=== PATIENT | male | born 1950 | race Asian ===

== ENCOUNTER 2019-05-12 18:13 | Inpatient (IN) | payer OTHER, BC ==
[~2019-05-12] VITALS: Ht 172.7 cm; Wt 65.5 kg
[~2019-05-12 18:13] MED LIST: APAP/HYDROCODON1 T13 PO; COL100 PO; FER300 PO; LAC PO; NEU300 PO; ROB750 PO; VITC PO
[2019-05-12 18:20] VITALS: Ht 172.7 cm; Wt 65.5 kg
[2019-05-12 22:26] LABS: BASOPHIL % 0.1 % (0-2); PLATELET COUNT 206 x10^3mcL (130-400); RED CELL DISTRIBUTION WIDTH 13.8 % (11.5-14.5)
[2019-05-12 23:08] LABS: CALCIUM 8.9 mg/dL (8.5-10.1); CARBON DIOXIDE 26.2 mmol/L (21-32); CHLORIDE SERUM 102 mmol/L (98-107); GLUCOSE SERUM 114 mg/dL (74-106); POTASSIUM SERUM 4.2 mmol/L (3.5-5.1); SODIUM SERUM 137 mmol/L (136-145)
[2019-05-12 23:13] LABS: ALBUMIN 3.2 g/dL (3.4-5.0); ALKALINE PHOSPHATASE 78 U/L (46-116); ALT/SGPT 23 U/L (16-63); AST/SGOT 18 U/L (15-37); BILIRUBIN TOTAL 0.7 mg/dL (0.20-1.00); LIPASE 55 IU/L (73-393); TOTAL PROTEIN, SERUM 6.9 g/dL (6.4-8.2)
[2019-05-13 00:08] VITALS: BP 117/64
[2019-05-13 02:20] LABS: UA SPECIFIC GRAVITY 1.025 (1.005-1.035); microscopic required? YES; urine erythrocyte 1+ (NEGATIVE)
[2019-05-13 03:05] LABS: AMPHETAMINE QUAL UR NONE DETECTED (See below)
[2019-05-13 04:47] LABS: CHOLESTEROL/HDL RATIO 2.5
[2019-05-13 05:25] VITALS: BP 109/56
[2019-05-13 07:37] VITALS: BP 132/57
[2019-05-13 07:45] LABS: CALCIUM 9.3 mg/dL (8.5-10.1); CARBON DIOXIDE 24.6 mmol/L (21-32); CHLORIDE SERUM 104 mmol/L (98-107); CREATININE SERUM 1.1 mg/dL (0.7-1.3); GLUCOSE SERUM 131 mg/dL (74-106); MAGNESIUM 2.3 mg/dL (1.8-2.4); PHOSPHOROUS 3.1 mg/dL (2.5-4.9); POTASSIUM SERUM 4.4 mmol/L (3.5-5.1); SODIUM SERUM 139 mmol/L (136-145)
[2019-05-13 08:05] LABS: PLATELET COUNT 198 x10^3mcL (130-400); RED CELL DISTRIBUTION WIDTH 13.8 % (11.5-14.5)
[2019-05-13 08:25] LABS: BASOPHIL % 0 % (0-2)
[2019-05-13 11:37] VITALS: BP 114/49
[2019-05-13 15:56] VITALS: BP 118/62
[2019-05-13 19:36] VITALS: BP 106/52
[2019-05-14 07:16] LABS: PLATELET COUNT 219 x10^3mcL (130-400); RED CELL DISTRIBUTION WIDTH 13.4 % (11.5-14.5)
[2019-05-14 07:21] LABS: BASOPHIL % 0 % (0-2)
[2019-05-14 08:05] LABS: CALCIUM 9.8 mg/dL (8.5-10.1); CARBON DIOXIDE 24.2 mmol/L (21-32); CHLORIDE SERUM 108 mmol/L (98-107); CREATININE SERUM 1.1 mg/dL (0.7-1.3); GLUCOSE SERUM 106 mg/dL (74-106); MAGNESIUM 2.8 mg/dL (1.8-2.4); PHOSPHOROUS 2.9 mg/dL (2.5-4.9); POTASSIUM SERUM 4.3 mmol/L (3.5-5.1); SODIUM SERUM 140 mmol/L (136-145)
[2019-05-14 08:37] VITALS: BP 109/61
[2019-05-14 12:12] VITALS: BP 107/53
[2019-05-14 16:38] VITALS: BP 108/53
[2019-05-14 21:20] VITALS: BP 118/54
[2019-05-15 06:03] VITALS: BP 113/62
[2019-05-15 06:47] LABS: CALCIUM 9.3 mg/dL (8.5-10.1); CARBON DIOXIDE 24.9 mmol/L (21-32); CHLORIDE SERUM 109 mmol/L (98-107); GLUCOSE SERUM 86 mg/dL (74-106); POTASSIUM SERUM 4.2 mmol/L (3.5-5.1); SODIUM SERUM 143 mmol/L (136-145)
[2019-05-15 07:16] LABS: BASOPHIL % 0.3 % (0-2); PLATELET COUNT 227 x10^3mcL (130-400); RED CELL DISTRIBUTION WIDTH 13.9 % (11.5-14.5)
[2019-05-15 08:43] VITALS: BP 121/57
[2019-05-15] MEDS ORDERED: NAPROXEN500 MG PO (12:03)
[2019-05-15 12:30] VITALS: BP 107/53
[2019-05-15 14:00] VITALS: BP 107/53
== END 2019-05-15 15:37 | disposition home or self-care (01) | DRG 551 ==
LOC: ED 18:13 → MU 23:04
PROVIDERS: Specialist; ADMIT Student in an Organized Health Care Education/Training Program
DX: M51.36 Other intervertebral disc degeneration, lumbar region (principal); N17.0 Acute kidney failure with tubular necrosis; E44.1 Mild protein-calorie malnutrition; D72.829 Elevated white blood cell count, unspecified; F43.9 Reaction to severe stress, unspecified; Z68.22 Body mass index [BMI] 22.0-22.9, adult
CPT/HCPCS: 97110-GP; 97116-GP; G0378; J1100; J1885; J3010; J7030; Q0092; Q0162

== ENCOUNTER → 2019-05-24 | Outpatient (CLI) | payer OTHER, BC ==
[~2019-05-24] MED LIST changes: +NAPROXEN500 MG PO
== END | disposition home or self-care (01) ==
LOC: CT 09:49
PROC: BW241ZZ Computerized Tomography (CT Scan) of Chest and Abdomen using Low Osmolar Contrast (ICD-10-PCS; principal; 2019-05-24)
DX: R91.1 Solitary pulmonary nodule (principal)
CPT/HCPCS: Q9967